=== PATIENT | female | born 1955 | race Caucasian/White ===

== ENCOUNTER 2016-07-16 10:31 | Emergency (ER) | payer BC, OTHER ==
[~2016-07-16] VITALS: Ht 193 cm; Wt 90.0 kg
[~2016-07-16 10:31] MED LIST: MACR100C37 PO; OXYC-360 PO; TAB-TAB PO
[2016-07-16 10:55] VITALS: BP 135/77; PULSE 101; RESP 16; TEMP 98.8; O2SAT 95
[2016-07-16] MEDS ORDERED: ALBUAER3 INH (11:10)
[2016-07-16] MEDS ORDERED: MELO7.5T4 PO (11:10)
[2016-07-16] MEDS ORDERED: MONT10TA2 PO (11:10)
[2016-07-16] MEDS ORDERED: LEVO50TA4 PO (11:10)
[2016-07-16] MEDS ORDERED: SODIUM CHLORIDE 0.9% FLUSH 5 ML FLUSH IVF PRN (11:15)
[2016-07-16] MEDS ORDERED: MORPHINE SULFATE 4 MG/ML INJ IV PUSH ONE (11:15)
[2016-07-16] MEDS ORDERED: ONDANSETRON HCL 4 MG/2 ML VIAL IVP ONE (11:15)
--- NOTE | 2016-07-16 11:16 | PD ---
HPI . Abdominal pain Chief Complaint: GI Complaint Time Seen by Provider: 11:03 Travel History International Travel<30 days: No Contact w/Intl Traveler<30days: No Traveled to known affect area: No History of Present Illness HPI Patient presents complaining with abdominal pain and bloating since 4:00 yesterday. She reports 10 episodes of vomiting. She denies diarrhea. She states her last normal bowel movement was yesterday. She states that she has had similar episodes in the past that have resolved quickly. She does state that she has taken Tums with some relief of her symptoms. She denies fever. She reports a history of asthma but no unusual respiratory symptoms this morning. She denies any urinary tract symptoms. [facility] Past Medical History Arthritis: Yes Asthma: Yes Diminished Hearing: No Thyroid Disease: Yes Influenza Vaccination: Yes ?: Not Social History Alcohol Use: Yes Tobacco Use: No Allergies-Medications (Allergen,Severity, Reaction): Coded Allergies: No Known Allergies (Verified , 07/16/16) Reported Meds & Prescriptions Reported Meds & Active Scripts Active Reported Levothyroxine (Levothyroxine Sodium) 50 Mcg Tab 50 Mcg PO DAILY Meloxicam 7.5 Mg Tab 7.5 Mg PO DAILY Singulair (Montelukast Sodium) 10 Mg Tab 10 Mg PO HS Proair Hfa 8.5 GM Inh (Albuterol Sulfate) 90 Mcg/Act Aer 2 Puff INH Q4-6H PRN 108 mcg/actuation Review of Systems Except as stated in HPI: all other systems reviewed are Neg General / Constitutional: No: Fever, Chills Cardiovascular: No: Chest Pain or Discomfort Respiratory: No: Shortness of Breath Gastrointestinal: Positive: Nausea, Vomiting, Abdominal Pain, Other (bloating) , No: Diarrhea, Constipation Genitourinary: No: Urgency, Frequency, Dysuria Physical Exam Narrative GENERAL: Healthy-appearing woman in no acute distress. SKIN: Warm and dry. HEAD: Atraumatic. Normocephalic. EYES: Pupils equal and round. ENT: No nasal bleeding or discharge. Mucous membranes pink and moist. NECK: Trachea midline. Neck is supple. CARDIOVASCULAR: Regular rate and rhythm. Heart sounds are normal. RESPIRATORY: No accessory muscle use. Lungs are clear. GASTROINTESTINAL: Abdomen soft, non-tender, nondistended. Normal bowel sounds. No right upper quadrant tenderness. MUSCULOSKELETAL: No obvious deformities. No edema. NEUROLOGICAL: Awake and alert. No obvious cranial nerve deficits. Motor grossly within normal limits. Normal speech. PSYCHIATRIC: Appropriate mood and affect; insight and judgment normal. Data Data Last Documented VS Vital Signs Date Time Temp Pulse Resp B/P Pulse Ox O2 Delivery O2 Flow Rate FiO2 07/16/16 12:44 89 126/65 94 07/16/16 10:55 98.8 16 Orders Complete Blood Count With Diff (07/16/16 11:12) Comprehensive Metabolic Panel (07/16/16 11:12) Lipase (07/16/16 11:12) Iv Access Insert/Monitor (07/16/16 11:12) Morphine Inj (Morphine Inj) (07/16/16 11:15) Ondansetron Inj (Zofran Inj) (07/16/16 11:15) Sodium Chloride 0.9% Flush (Ns Flush) (07/16/16 11:15) Electrocardiogram (07/16/16 11:12) Troponin I (07/16/16 11:12) Labs Laboratory Tests Test 07/16/16 11:56 White Blood Count 22.2 TH/MM3 Red Blood Count 4.85 MIL/MM3 Hemoglobin 14.6 GM/DL Hematocrit 42.9 % Mean Corpuscular Volume 88.4 FL Mean Corpuscular Hemoglobin 30.0 PG Mean Corpuscular Hemoglobin 33.9 % Concent Red Cell Distribution Width 12.5 % Platelet Count 264 TH/MM3 Mean Platelet Volume 10.2 FL Neutrophils (%) (Auto) % Lymphocytes (%) (Auto) % Monocytes (%) (Auto) % Eosinophils (%) (Auto) % Basophils (%) (Auto) % Neutrophils # (Auto) TH/MM3 Lymphocytes # (Auto) TH/MM3 Monocytes # (Auto) TH/MM3 Eosinophils # (Auto) TH/MM3 Basophils # (Auto) TH/MM3 CBC Comment AUTO DIFF Differential Total Cells 100 Counted Neutrophils % (Manual) 85 % Band Neutrophils % 8 % Lymphocytes % 3 % Monocytes % 3 % Eosinophils % 1 % Neutrophils # (Manual) 20.6 TH/MM3 Differential Comment FINAL DIFF MANUAL Platelet Estimate NORMAL Platelet Morphology Comment NORMAL Red Cell Morphology Comment NORMAL Sodium Level 140 MEQ/L Potassium Level 3.6 MEQ/L Chloride Level 99 MEQ/L Carbon Dioxide Level 29.8 MEQ/L Anion Gap 11 MEQ/L Blood Urea Nitrogen 20 MG/DL Creatinine 1.40 MG/DL Estimat Glomerular Filtration 38 ML/MIN Rate Random Glucose 126 MG/DL Calcium Level 9.5 MG/DL Total Bilirubin 5.2 MG/DL Aspartate Amino Transf 675 U/L (AST/SGOT) Alanine Aminotransferase 946 U/L (ALT/SGPT) Alkaline Phosphatase 149 U/L Troponin I LESS THAN 0.02 NG/ML Total Protein 7.9 GM/DL Albumin 3.8 GM/DL Lipase 160 U/L MDM Medical Decision Making Medical Screen Exam Complete: Yes Emergency Medical Condition: Yes Interpretation(s) EKG shows a normal sinus rhythm with no ST segment elevation or depression. Differential Diagnosis Differential diagnosis of abdominal pain includes but is not limited to gastritis, pancreatitis, hepatitis, gastroenteritis, gallbladder disease, constipation, urinary retention, UTI, peptic ulcer disease, diverticulitis or appendicitis Narrative Course Patient presents for evaluation of upper abdominal pain with emesis. Symptoms are improving. Abdominal exam is benign. CBC & BMP Diagram 07/16/16 11:56 LFTs are remarkable for a total bili of 5.2, AST 75, ALT 946 and alkaline phosphatase of 149. I have added a hepatitis panel. However, she is stable for treatment as an outpatient. Diagnosis Primary Impression: Hepatitis Patient Instructions: General Instructions, Hepatitis A (ED) Additional Instructions: See your doctor for recheck next week Med/Other Pt SpecificInfo: Prescription(s) given Scripts Promethazine (Phenergan)25 Mg Tab25 Mg PO Q6H PRN (Nausea/Vomiting) #20 TAB Ref 0 Prov:Victorina Hastings MD 07/16/16 Disposition: 01 DISCHARGE HOME Condition: Stable Victorina Hastings MD Jul 16, 2016 11:15
[2016-07-16 12:10] LABS: HEMATOCRIT 42.9 % (35.0-46.0); MEAN CELL VOLUME 88.4 FL (80.0-100.0); MEAN CORPUSCULAR HGB CONC 33.9 % (32.0-36.0); PLATELET COUNT 264 TH/MM3 (150-450); RED BLOOD COUNT 4.85 MIL/MM3 (4.00-5.30); RED CELL DISTRIBUTION WIDTH 12.5 % (11.6-17.2); WHITE BLOOD COUNT 22.2 TH/MM3 (4.0-11.0)
[2016-07-16 12:11] LABS: HEMO FLAGS AUTO DIFF
[2016-07-16 12:24] LABS: CHLORIDE 99 MEQ/L (98-107); POTASSIUM 3.6 MEQ/L (3.5-5.1); SODIUM (NA) 140 MEQ/L (136-145)
[2016-07-16 12:26] LABS: BANDS 8 % (0-6); EOSINOPHILS 1 % (0-4); NEUTROPHIL # MANUAL DIFF 20.6 TH/MM3 (1.8-7.7); POLYS (SEG NEUTROPHILS) 85 % (16-70); WBC DIFF SAMPLE 100
[2016-07-16 12:27] LABS: PLATELET ESTIMATE SMEAR NORMAL (NORMAL); PLATELET MORPHOLOGY NORMAL (NORMAL); SCAN/DIFF FINAL DIFF MANUAL
[2016-07-16 12:29] LABS: ANION GAP 11 MEQ/L (5-15); BICARBONATE 29.8 MEQ/L (21.0-32.0); BLOOD UREA NITROGEN 20 MG/DL (7-18)
[2016-07-16 12:32] LABS: ALT (GPT) 946 U/L (10-53); AST (GOT) 675 U/L (15-37); GLOMERULAR FILTRATION RATE 38 ML/MIN (>89)
[2016-07-16 12:34] LABS: TOTAL BILIRUBIN ADULT 5.2 MG/DL (0.2-1.0)
[2016-07-16 12:35] LABS: ALKALINE PHOSPHATASE 149 U/L (45-117)
[2016-07-16 12:44] VITALS: BP 126/65; PULSE 89; O2SAT 94
[2016-07-16] MEDS ORDERED: PROM25TA5 PO (12:56)
--- NOTE | 2016-07-16 16:34 | EKG ---
Date Performed: 07/16/2016 Time Performed: 11:23:40 PTAGE: 61 years EKG: Sinus rhythm Nonspecific ST abnormality diffusely Borderline ECG PREVIOUS TRACING : 06/01/2007 10.30 Compared to previous tracing, nonspecific ST abnormality is now evident. DOCTOR: Flex Sauceda Interpretating Date/Time 07/16/2016 16:32:08
== END 2016-07-16 13:37 | disposition home or self-care (01) ==
LOC: PHED 10:31
DX: K75.9 Inflammatory liver disease, unspecified (principal); R94.31 Abnormal electrocardiogram [ECG] [EKG]
CPT/HCPCS: 80053; 80074; 83690; 84484; 85007; 85027; 93005; 96374; 96375; 99284; J2270; J2405